=== PATIENT | male | born 1955 | race Hispanic/Latino ===

== ENCOUNTER 2022-03-13 16:52 | Emergency (ER) | payer SELFPAY ==
[~2022-03-13] VITALS: Ht 162.6 cm; Wt 68.0 kg
[~2022-03-13 16:52] MED LIST: AMLODIPINE BESYL5 MG PO; AUGMENTIN 500-1 EACH PO; CEFDINIR300 MG PO; METOPROLOL SUCC25 MG PO; METOPROLOL TART25 MG PO; PLAVIX75 MG PO; SIMVASTATIN20 MG PO; TYLENOL # 31 EA PO
[2022-03-13] MEDS ORDERED: SODIUM CHLORIDE 0.9% 1000ML 1,000 ML IV ONE ×2 (17:30→20:15)
[2022-03-13 17:44] LABS: BASOPHILS % 0.3 % (0.0-1.0); EOSINOPHILS % 0.2 % (0.0-6.0); HEMATOCRIT 25.8 % (38.2-49.6); HEMOGLOBIN 8.1 g/dL (14.0-18.0); LYMPHOCYTES # (AUTO) 0.2 (1.0-3.2); MEAN CORPUSCULAR HEMOGLOBIN 29.3 pg (28-32); MEAN CORPUSCULAR HGB CONC 31.4 g/dL (31-35); MEAN CORPUSCULAR VOLUME 93.5 fL (81-99); MONOCYTES # (AUTO) 0.5 (0.2-0.8); MONOCYTES % 8.9 % (4.4-11.3); NEUTROPHILS # (AUTO) 5.1 (2.1-6.9); NEUTROPHILS % 85.8 % (38.7-80.0); PLATELET COUNT 135 x10e3/uL (140-360); RED BLOOD COUNT 2.76 x10e6/uL (4.3-5.7); RED CELL DISTRIBUTION WIDTH 15.4 % (11.7-14.4)
[2022-03-13 18:18] LABS: ALANINE AMINOTRANSFERASE 10 IU/L (0-55); ALBUMIN 2.3 g/dL (3.5-5.0); ALBUMIN/GLOBULIN RATIO 0.5 (0.8-2.0); ALKALINE PHOSPHATASE 54 IU/L (40-150); ANION GAP 29.4 mmol/L (8-16); CALCIUM 8.3 mg/dL (8.4-10.2); CHLORIDE 102 mmol/L (98-107); CREATINE KINASE 17 IU/L (30-200); CREATININE, SERUM 19.43 mg/dL (0.72-1.25); GLUCOSE 141 mg/dL (74-118); SODIUM 132 mmol/L (136-145)
[2022-03-13 18:26] LABS: POTASSIUM 6.4 mmol/L (3.5-5.1)
[2022-03-13 18:28] LABS: BLOOD UREA NITROGEN 127 mg/dL (7-26); CARBON DIOXIDE 7 mmol/L (22-29)
[2022-03-13] MEDS ORDERED: CALCIUM CHLORIDE 10% 1.36 MEQ/ML 10ML SYR IV STA (18:31)
[2022-03-13] MEDS ORDERED: DEXTROSE 50% SYRINGE 50 ML IV STA (18:31)
[2022-03-13] MEDS ORDERED: SODIUM BICARBONATE 8.4% INJ 50 ML SYR IV STA (18:31)
[2022-03-13] MEDS ORDERED: SOD POLYSTYRENE SULFONATE SUSP 15 GM/60 ML BTL PO ONE (18:45)
[2022-03-13] MEDS ORDERED: INSULIN REGULAR, HUMAN 100 UNIT/1 ML IV ONE (18:45)
[2022-03-13] MEDS ORDERED: CALCIUM CHLORIDE 13.6 MEQ in SODIUM CHLORIDE 0.9% 100 ML IV ONE (19:10)
[2022-03-13 19:52] LABS: AMPHETAMINES SCREEN,URINE NEGATIVE (NEGATIVE); BENZODIAZEPINES SCREEN,URINE NEGATIVE (NEGATIVE); PHENCYCLIDINE SCREEN,URINE NEGATIVE (NEGATIVE)
[2022-03-13] MEDS ORDERED: ONDANSETRON HCL INJ 2MG/ML 2ML 2 MG/ML VIAL IV STA (19:57)
[2022-03-13] MEDS ORDERED: FENTANYL CITRATE/PF 100MCG/2 ML INJ IV ONE (20:00)
[2022-03-13 20:04] LABS: CLARITY,URINE SL CLOUDY (CLEAR); COLOR,URINE YELLOW (YELLOW)
[2022-03-13 20:05] LABS: KETONES,URINE TRACE (NEGATIVE); LEUKOCYTE ESTERASE ,URINE NEGATIVE (NEGATIVE); NITRITE,URINE NEGATIVE (NEGATIVE); PROTEIN,URINE DIPSTICK >=300 (NEGATIVE); URINE UROBILINOGEN 0.2 mg/dL (0.2 - 1)
[2022-03-13 20:10] LABS: RBC,URINE >50 /HPF (0-5)
[2022-03-13 20:11] LABS: BACTERIA,URINE MANY /HPF
[2022-03-13 20:12] LABS: EPITHELIAL CELLS,URINE MANY /LPF
[2022-03-13 20:15] LABS: ABG PCO2 24 mmHg (35-45); ABG PH 7.27 (7.35-7.45); ABG PO2 123 mmHg (80-105)
[2022-03-13] MEDS ORDERED: FENTANYL CITRATE/PF 100MCG/2 ML INJ ONE (20:15)
[2022-03-13] MEDS ORDERED: ONDANSETRON HCL INJ 2MG/ML 2ML 2 MG/ML VIAL ONE (20:15)
[2022-03-13 20:16] LABS: ABG HCO3 11 mmol/L (22-26); ABG TCO2 12
[2022-03-13 22:32] LABS: ANION GAP 24.6 mmol/L (8-16); CALCIUM 8.8 mg/dL (8.4-10.2); CREATININE, SERUM 18.2 mg/dL (0.72-1.25); POTASSIUM 4.6 mmol/L (3.5-5.1)
== END 2022-03-14 01:30 | disposition other institution (70) ==
LOC: ER 17:06
DX: R41.82 Altered mental status, unspecified (principal); U07.1 COVID-19; N19 Unspecified kidney failure; E87.5 Hyperkalemia
CPT/HCPCS: 36415; 36600; 51702; 70450; 71045; 74176; 80048; 80053; 80307; 80320; 81001; 82140; 82550; 82553; 82805; 82948; 83605; 84484; 85025; 93005; 99284; J1817; J2405; J3010; J7030; J7050; J7799; U0002; 51700

== ENCOUNTER 2022-04-30 17:57 | Inpatient (IN) | payer BC, MEDICARE ==
[~2022-04-30] VITALS: Ht 162.6 cm; Wt 68.0 kg
[2022-04-30 18:44] LABS: BASOPHILS % 0.3 % (0.0-1.0); EOSINOPHILS # (AUTO) 0.3 (0.0-0.4); EOSINOPHILS % 3.6 % (0.0-6.0); LYMPHOCYTES # (AUTO) 0.6 (1.0-3.2); LYMPHOCYTES % 7.9 % (18.0-39.1); MEAN CORPUSCULAR HEMOGLOBIN 29.4 pg (28-32); MEAN CORPUSCULAR HGB CONC 30.2 g/dL (31-35); MEAN CORPUSCULAR VOLUME 97.5 fL (81-99); MONOCYTES # (AUTO) 0.6 (0.2-0.8); MONOCYTES % 8.4 % (4.4-11.3); NEUTROPHILS # (AUTO) 5.5 (2.1-6.9); NEUTROPHILS % 79.2 % (38.7-80.0); PLATELET COUNT 148 x10e3/uL (140-360); RED BLOOD COUNT 1.97 x10e6/uL (4.3-5.7); RED CELL DISTRIBUTION WIDTH 17.9 % (11.7-14.4)
[2022-04-30 18:53] LABS: HEMOGLOBIN 5.8 g/dL (14.0-18.0)
[2022-04-30 18:54] LABS: HEMATOCRIT 19.2 % (38.2-49.6)
[2022-04-30 19:05] LABS: ALBUMIN 2.5 g/dL (3.5-5.0); ALBUMIN/GLOBULIN RATIO 0.6 (0.8-2.0); ANION GAP 16.9 mmol/L (8-16); CALCIUM 9.2 mg/dL (8.4-10.2); CREATININE, SERUM 3.66 mg/dL (0.72-1.25)
[2022-04-30 19:07] LABS: POTASSIUM 2.9 mmol/L (3.5-5.1)
[2022-04-30] MEDS ORDERED: ONDANSETRON HCL INJ 2MG/ML 2ML 2 MG/ML VIAL IV PRN (19:15)
[2022-04-30] MEDS ORDERED: SODIUM CHLORIDE FLUSH 10 ML SYR INJ PRN (19:15)
[2022-04-30] MEDS ORDERED: SODIUM CHLORIDE 0.9% 250ML 250 ML IV ONE ×2 (19:15)
[2022-05-01] VITALS (9 sets, daily range): BP systolic 88–118; BP diastolic 46–92
[2022-05-01 06:08] LABS: BASOPHILS % 0.2 % (0.0-1.0); EOSINOPHILS # (AUTO) 0.2 (0.0-0.4); EOSINOPHILS % 4.2 % (0.0-6.0); HEMATOCRIT 22.8 % (38.2-49.6); HEMOGLOBIN 7.3 g/dL (14.0-18.0); LYMPHOCYTES # (AUTO) 0.5 (1.0-3.2); LYMPHOCYTES % 8.3 % (18.0-39.1); MEAN CORPUSCULAR HEMOGLOBIN 28.6 pg (28-32); MEAN CORPUSCULAR VOLUME 89.4 fL (81-99); MONOCYTES # (AUTO) 0.5 (0.2-0.8); MONOCYTES % 8.9 % (4.4-11.3); NEUTROPHILS # (AUTO) 4.3 (2.1-6.9); NEUTROPHILS % 77.5 % (38.7-80.0); PLATELET COUNT 130 x10e3/uL (140-360); RED BLOOD COUNT 2.55 x10e6/uL (4.3-5.7); RED CELL DISTRIBUTION WIDTH 18.2 % (11.7-14.4)
[2022-05-01 06:41] LABS: ALBUMIN 2.4 g/dL (3.5-5.0); ALBUMIN/GLOBULIN RATIO 0.6 (0.8-2.0); ANION GAP 16.6 mmol/L (8-16); CALCIUM 9.4 mg/dL (8.4-10.2); CREATININE, SERUM 4.3 mg/dL (0.72-1.25)
[2022-05-01 06:49] LABS: POTASSIUM 2.6 mmol/L (3.5-5.1)
[2022-05-01 09:46] LABS: FERRITIN 861.61 ng/mL (21.81-274.66)
[2022-05-01] MEDS: EPOETIN ALFA-EPBX 10,000 UNIT/ML VIAL SC SCH (09:53)
[2022-05-01] MEDS ORDERED: ACETAMINOPHEN 325 MG TAB PO PRN (11:00)
[2022-05-01] MEDS ORDERED: POTASSIUM CHLORIDE 10MEQ/100ML 400 ML IV ONE (11:00)
[2022-05-01] MEDS ORDERED: SODIUM FERRIC GLUCONATE COMPLX 125 MG in SODIUM CHLORIDE 0.9% 100 ML IV SCH (12:00)
[2022-05-01] MEDS ORDERED: SODIUM CHLORIDE 0.9% 100 ML ONE (12:16)
[2022-05-01] MEDS: IRON SUCROSE 100 MG in SODIUM CHLORIDE 0.9% 100 ML IV SCH (12:26)
[2022-05-01] MEDS ORDERED: SODIUM CHLORIDE 0.9% 1000ML 1,000 ML ONE (15:00)
[2022-05-01] MEDS ORDERED: SODIUM CHLORIDE 0.9% 500ML 500 ML IV ONE ×2 (15:15→16:00)
[2022-05-01] MEDS ORDERED: SODIUM CHLORIDE 0.9% 1000ML 2,000 ML IV PRN (16:00)
[2022-05-01] MEDS ORDERED: ALBUMIN 25% 12.5GM 0.25 GM/ML BTL IV PRN (16:00)
[2022-05-01] MEDS ORDERED: HEPARIN SOD (PORCINE) 1000 UNIT/ML SDV IV PRN (16:00)
[2022-05-01] MEDS ORDERED: SODIUM CHLORIDE 0.9% 250ML 250 ML ONE (17:17)
[2022-05-01] MEDS ORDERED: HALOPERIDOL LACTATE 5 MG/ML VIAL IM ONE (22:00)
[2022-05-01] MEDS: SIMVASTATIN 20 MG TAB PO SCH (22:17)
[2022-05-02] VITALS (12 sets, daily range): BP systolic 108–169; BP diastolic 51–92
[2022-05-02 06:30] LABS: BASOPHILS % 0.3 % (0.0-1.0); EOSINOPHILS # (AUTO) 0.2 (0.0-0.4); EOSINOPHILS % 2.6 % (0.0-6.0); HEMATOCRIT 31.7 % (38.2-49.6); LYMPHOCYTES # (AUTO) 0.6 (1.0-3.2); LYMPHOCYTES % 8.7 % (18.0-39.1); MEAN CORPUSCULAR HEMOGLOBIN 28.6 pg (28-32); MEAN CORPUSCULAR HGB CONC 31.5 g/dL (31-35); MEAN CORPUSCULAR VOLUME 90.6 fL (81-99); MONOCYTES # (AUTO) 0.6 (0.2-0.8); MONOCYTES % 8.4 % (4.4-11.3); NEUTROPHILS # (AUTO) 5.2 (2.1-6.9); NEUTROPHILS % 79.4 % (38.7-80.0); PLATELET COUNT 145 x10e3/uL (140-360); RED CELL DISTRIBUTION WIDTH 16.9 % (11.7-14.4)
[2022-05-02 07:05] LABS: ANION GAP 15.9 mmol/L (8-16); CALCIUM 9.5 mg/dL (8.4-10.2); CREATININE, SERUM 2.55 mg/dL (0.72-1.25); MAGNESIUM 2.1 MG/DL (1.3-2.1); PHOSPHORUS 1.2 MG/DL (2.3-4.7)
[2022-05-02 07:16] LABS: POTASSIUM 2.9 mmol/L (3.5-5.1)
[2022-05-02] MEDS: FOLIC ACID 1 MG TAB PO SCH (08:24)
[2022-05-02] MEDS: THIAMINE HCL 100 MG TAB PO SCH (08:24)
[2022-05-02] MEDS: IRON SUCROSE 100 MG in SODIUM CHLORIDE 0.9% 100 ML IV SCH (10:00)
[2022-05-02] MEDS ORDERED: POTASSIUM PHOSPHATE 30 MM in SODIUM CHLORIDE 0.9% 250ML 250 ML IV ONE (15:30)
[2022-05-02] MEDS: POTASSIUM CHLORIDE 20 MEQ TAB CR PO SCH (16:49)
[2022-05-02] MEDS: QUETIAPINE FUMARATE 25 MG TAB PO SCH (17:25)
[2022-05-02] MEDS ORDERED: QUETIAPINE FUMARATE 25 MG TAB GT ONE (21:45)
[2022-05-02] MEDS: SIMVASTATIN 20 MG TAB PO SCH (22:42)
[2022-05-03] VITALS (16 sets, daily range): BP systolic 128–193; BP diastolic 56–84
[2022-05-03] MEDS: METOPROLOL TARTRATE INJ 1 MG/ML VIAL IV PRN (03:33)
[2022-05-03] MEDS: QUETIAPINE FUMARATE 25 MG TAB PO SCH ×2 (08:13→17:08)
[2022-05-03] MEDS: POTASSIUM CHLORIDE 20 MEQ TAB CR PO SCH (08:13)
[2022-05-03] MEDS: THIAMINE HCL 100 MG TAB PO SCH (08:13)
[2022-05-03] MEDS: FOLIC ACID 1 MG TAB PO SCH (08:14)
[2022-05-03] MEDS: IRON SUCROSE 100 MG in SODIUM CHLORIDE 0.9% 100 ML IV SCH (08:48)
[2022-05-03] MEDS ORDERED: MAGNESIUM HYDROXIDE 30 ML UDC PO ONE (21:15)
[2022-05-03] MEDS: SIMVASTATIN 20 MG TAB PO SCH (21:54)
[2022-05-03 23:06] LABS: BASOPHILS % 0.5 % (0.0-1.0); EOSINOPHILS # (AUTO) 0.2 (0.0-0.4); EOSINOPHILS % 3.2 % (0.0-6.0); HEMATOCRIT 34.2 % (38.2-49.6); HEMOGLOBIN 10.5 g/dL (14.0-18.0); LYMPHOCYTES # (AUTO) 0.6 (1.0-3.2); LYMPHOCYTES % 11.1 % (18.0-39.1); MEAN CORPUSCULAR HEMOGLOBIN 28.5 pg (28-32); MEAN CORPUSCULAR HGB CONC 30.7 g/dL (31-35); MEAN CORPUSCULAR VOLUME 92.7 fL (81-99); MONOCYTES # (AUTO) 0.4 (0.2-0.8); MONOCYTES % 7.6 % (4.4-11.3); NEUTROPHILS # (AUTO) 4.3 (2.1-6.9); NEUTROPHILS % 75.8 % (38.7-80.0); PLATELET COUNT 102 x10e3/uL (140-360); RED BLOOD COUNT 3.69 x10e6/uL (4.3-5.7)
[2022-05-03 23:18] LABS: ANION GAP 17.7 mmol/L (8-16); CALCIUM 10.3 mg/dL (8.4-10.2); CREATININE, SERUM 3.48 mg/dL (0.72-1.25)
[2022-05-03 23:25] LABS: POTASSIUM 3.7 mmol/L (3.5-5.1)
[2022-05-04] VITALS (8 sets, daily range): BP systolic 108–161; BP diastolic 57–84
[2022-05-04] MEDS: METOPROLOL TARTRATE INJ 1 MG/ML VIAL IV PRN (01:41)
[2022-05-04 06:09] LABS: BASOPHILS % 0.6 % (0.0-1.0); EOSINOPHILS # (AUTO) 0.2 (0.0-0.4); EOSINOPHILS % 3.5 % (0.0-6.0); HEMATOCRIT 32.1 % (38.2-49.6); HEMOGLOBIN 10.6 g/dL (14.0-18.0); LYMPHOCYTES # (AUTO) 0.6 (1.0-3.2); MEAN CORPUSCULAR HEMOGLOBIN 28.6 pg (28-32); MEAN CORPUSCULAR VOLUME 86.8 fL (81-99); MONOCYTES # (AUTO) 0.5 (0.2-0.8); NEUTROPHILS # (AUTO) 4.8 (2.1-6.9); NEUTROPHILS % 77.5 % (38.7-80.0); PLATELET COUNT 145 x10e3/uL (140-360); RED CELL DISTRIBUTION WIDTH 16.8 % (11.7-14.4)
[2022-05-04 06:37] LABS: ALBUMIN 2.5 g/dL (3.5-5.0); ALBUMIN/GLOBULIN RATIO 0.5 (0.8-2.0); ANION GAP 18.9 mmol/L (8-16); CALCIUM 10.3 mg/dL (8.4-10.2); CREATININE, SERUM 3.31 mg/dL (0.72-1.25); MAGNESIUM 2.2 MG/DL (1.3-2.1); POTASSIUM 3.9 mmol/L (3.5-5.1)
[2022-05-04] MEDS: CARVEDILOL 12.5 MG TAB PO SCH ×2 (09:00→16:56)
[2022-05-04] MEDS ORDERED: POTASSIUM PHOSPHATE 15 MM in SODIUM CHLORIDE 0.9% 250ML 250 ML IV ONE (10:00)
[2022-05-04] MEDS ORDERED: ONDANSETRON HCL 4 MG ORAL DISINTEGRATING TAB PO PRN (10:15)
[2022-05-04] MEDS: FOLIC ACID 1 MG TAB PO SCH (12:42)
[2022-05-04] MEDS: QUETIAPINE FUMARATE 25 MG TAB PO SCH ×2 (12:43→16:56)
[2022-05-04] MEDS: POTASSIUM CHLORIDE 20 MEQ TAB CR PO SCH (12:43)
[2022-05-04] MEDS: THIAMINE HCL 100 MG TAB PO SCH (12:43)
[2022-05-04] MEDS: IRON SUCROSE 100 MG in SODIUM CHLORIDE 0.9% 100 ML IV SCH (12:43)
[2022-05-04] MEDS: EPOETIN ALFA-EPBX 10,000 UNIT/ML VIAL SC SCH (12:43)
[2022-05-04] MEDS: SIMVASTATIN 20 MG TAB PO SCH (21:00)
[2022-05-05 07:00] LABS: ANION GAP 16.1 mmol/L (8-16); CALCIUM 9.7 mg/dL (8.4-10.2); CREATININE, SERUM 2.04 mg/dL (0.72-1.25); PHOSPHORUS 3.4 MG/DL (2.3-4.7); POTASSIUM 4.1 mmol/L (3.5-5.1)
[2022-05-05 07:17] VITALS: BP 158/82
[2022-05-05 08:00] VITALS: BP 140/78
[2022-05-05 08:23] VITALS: BP 148/83
[2022-05-05] MEDS: IRON SUCROSE 100 MG in SODIUM CHLORIDE 0.9% 100 ML IV SCH (08:43)
[2022-05-05] MEDS: CARVEDILOL 12.5 MG TAB PO SCH ×2 (08:52→16:49)
[2022-05-05] MEDS: FOLIC ACID 1 MG TAB PO SCH (08:52)
[2022-05-05] MEDS: THIAMINE HCL 100 MG TAB PO SCH (08:53)
[2022-05-05] MEDS: POTASSIUM CHLORIDE 20 MEQ TAB CR PO SCH (08:53)
[2022-05-05] MEDS: QUETIAPINE FUMARATE 25 MG TAB PO SCH ×2 (08:53→16:49)
[2022-05-05 11:23] VITALS: BP 146/65
[2022-05-05] MEDS ORDERED: PROPOFOL IV EMULSION 10 MG/ML 20 ML VIAL ONE (16:58)
[2022-05-05] MEDS ORDERED: LIDOCAINE HCL 2% LOCAL INJ 5 ML SDV VIAL INJ ONE (16:58)
[2022-05-05] MEDS ORDERED: CYANOCOBALAMIN INJ 1,000 MCG/ML VIAL IM ONE (17:00)
[2022-05-05 20:00] VITALS: BP 146/65
[2022-05-05] MEDS: SIMVASTATIN 20 MG TAB PO SCH (20:32)
[2022-05-06] VITALS (8 sets, daily range): BP systolic 122–144; BP diastolic 60–84
[2022-05-06] MEDS ORDERED: PEG (High)/E-LYTE SOLN 4,000 ML BTL GT ONE (00:45)
[2022-05-06 06:38] LABS: ANION GAP 17.8 mmol/L (8-16); CALCIUM 9.4 mg/dL (8.4-10.2); CREATININE, SERUM 2.34 mg/dL (0.72-1.25); POTASSIUM 3.8 mmol/L (3.5-5.1)
[2022-05-06] MEDS: FOLIC ACID 1 MG TAB PO SCH (09:12)
[2022-05-06] MEDS: CYANOCOBALAMIN INJ 1,000 MCG/ML VIAL IM SCH (09:12)
[2022-05-06] MEDS: THIAMINE HCL 100 MG TAB PO SCH (09:12)
[2022-05-06] MEDS: CARVEDILOL 12.5 MG TAB PO SCH ×2 (09:13→16:27)
[2022-05-06] MEDS: QUETIAPINE FUMARATE 25 MG TAB PO SCH ×2 (09:14→16:19)
[2022-05-06] MEDS: IRON SUCROSE 100 MG in SODIUM CHLORIDE 0.9% 100 ML IV SCH (09:14)
[2022-05-06] MEDS: EPOETIN ALFA-EPBX 10,000 UNIT/ML VIAL SC SCH (09:40)
[2022-05-06] MEDS ORDERED: SODIUM CHLORIDE 0.9% 250ML 250 ML ONE (14:49)
[2022-05-06] MEDS: SODIUM CHLORIDE 0.9% 1000ML 1,000 ML IV SCH (16:19)
[2022-05-06] MEDS ORDERED: OLANZAPINE 5 MG TAB PO SCH (20:45)
[2022-05-06] MEDS: SIMVASTATIN 20 MG TAB PO SCH (21:29)
[2022-05-07] VITALS (8 sets, daily range): BP systolic 114–188; BP diastolic 60–89
[2022-05-07] MEDS: SODIUM CHLORIDE 0.9% 1000ML 1,000 ML IV SCH (05:12)
[2022-05-07 05:45] LABS: BASOPHILS % 0.3 % (0.0-1.0); EOSINOPHILS # (AUTO) 0.1 (0.0-0.4); EOSINOPHILS % 2.4 % (0.0-6.0); HEMATOCRIT 30.4 % (38.2-49.6); HEMOGLOBIN 9.1 g/dL (14.0-18.0); LYMPHOCYTES # (AUTO) 0.7 (1.0-3.2); LYMPHOCYTES % 11.8 % (18.0-39.1); MEAN CORPUSCULAR HEMOGLOBIN 28.5 pg (28-32); MEAN CORPUSCULAR HGB CONC 29.9 g/dL (31-35); MEAN CORPUSCULAR VOLUME 95.3 fL (81-99); MONOCYTES # (AUTO) 0.6 (0.2-0.8); MONOCYTES % 9.4 % (4.4-11.3); NEUTROPHILS # (AUTO) 4.3 (2.1-6.9); NEUTROPHILS % 74.4 % (38.7-80.0); PLATELET COUNT 176 x10e3/uL (140-360); RED BLOOD COUNT 3.19 x10e6/uL (4.3-5.7); RED CELL DISTRIBUTION WIDTH 16.5 % (11.7-14.4)
[2022-05-07 06:12] LABS: ANION GAP 17.5 mmol/L (8-16); CALCIUM 8.6 mg/dL (8.4-10.2); CREATININE, SERUM 2.14 mg/dL (0.72-1.25); MAGNESIUM 1.6 MG/DL (1.3-2.1); PHOSPHORUS 3.6 MG/DL (2.3-4.7); POTASSIUM 3.5 mmol/L (3.5-5.1)
[2022-05-07] MEDS: THIAMINE HCL 100 MG TAB PO SCH (09:14)
[2022-05-07] MEDS: CYANOCOBALAMIN INJ 1,000 MCG/ML VIAL IM SCH (09:14)
[2022-05-07] MEDS: QUETIAPINE FUMARATE 25 MG TAB PO SCH ×2 (09:14→17:11)
[2022-05-07] MEDS: FOLIC ACID 1 MG TAB PO SCH (09:14)
[2022-05-07] MEDS: CARVEDILOL 12.5 MG TAB PO SCH ×2 (09:15→17:12)
[2022-05-07] MEDS: IRON SUCROSE 100 MG in SODIUM CHLORIDE 0.9% 100 ML IV SCH (09:17)
[2022-05-07] MEDS ORDERED: POTASSIUM CHLORIDE 20 MEQ TAB CR PO ONE (09:30)
[2022-05-07] MEDS: SODIUM CHLORIDE 0.45% 1,000 ML IV SCH ×2 (13:41→23:44)
[2022-05-07] MEDS ORDERED: LIDOCAINE HCL 2% LOCAL INJ 5 ML SDV VIAL INJ ONE (17:27)
[2022-05-07] MEDS ORDERED: HYOSCYAMINE SULFATE 0.5 MG/ML INJ ONE (17:27)
[2022-05-07] MEDS ORDERED: PROPOFOL IV EMULSION 10 MG/ML 20 ML VIAL ONE (17:27)
[2022-05-07] MEDS ORDERED: OLANZAPINE 5 MG TAB PO PRN (22:00)
[2022-05-07] MEDS: DIAZEPAM 5 MG TAB PO SCH (22:18)
[2022-05-07] MEDS: SIMVASTATIN 20 MG TAB PO SCH (22:18)
[2022-05-08 01:08] VITALS: BP 130/68
[2022-05-08 04:19] VITALS: BP 138/80
[2022-05-08 05:16] LABS: BASOPHILS % 0.6 % (0.0-1.0); EOSINOPHILS # (AUTO) 0.2 (0.0-0.4); EOSINOPHILS % 3.5 % (0.0-6.0); HEMATOCRIT 32.2 % (38.2-49.6); HEMOGLOBIN 9.6 g/dL (14.0-18.0); LYMPHOCYTES # (AUTO) 0.9 (1.0-3.2); LYMPHOCYTES % 13.3 % (18.0-39.1); MEAN CORPUSCULAR HEMOGLOBIN 28.5 pg (28-32); MEAN CORPUSCULAR HGB CONC 29.8 g/dL (31-35); MEAN CORPUSCULAR VOLUME 95.5 fL (81-99); MONOCYTES # (AUTO) 0.5 (0.2-0.8); MONOCYTES % 7.8 % (4.4-11.3); NEUTROPHILS # (AUTO) 4.7 (2.1-6.9); NEUTROPHILS % 71.4 % (38.7-80.0); PLATELET COUNT 190 x10e3/uL (140-360); RED BLOOD COUNT 3.37 x10e6/uL (4.3-5.7)
[2022-05-08 05:35] LABS: ANION GAP 15.7 mmol/L (8-16); CALCIUM 8.5 mg/dL (8.4-10.2); CREATININE, SERUM 1.59 mg/dL (0.72-1.25); POTASSIUM 3.7 mmol/L (3.5-5.1)
[2022-05-08] MEDS: DIAZEPAM 5 MG TAB PO SCH ×2 (06:23→14:00)
[2022-05-08] MEDS: FOLIC ACID 1 MG TAB PO SCH (08:13)
[2022-05-08] MEDS: THIAMINE HCL 100 MG TAB PO SCH (08:14)
[2022-05-08] MEDS: SODIUM CHLORIDE 0.45% 1,000 ML IV SCH (09:40)
[2022-05-08] MEDS: IRON SUCROSE 100 MG in SODIUM CHLORIDE 0.9% 100 ML IV SCH (09:40)
[2022-05-08] MEDS: CARVEDILOL 12.5 MG TAB PO SCH (09:42)
[2022-05-08] MEDS: CYANOCOBALAMIN INJ 1,000 MCG/ML VIAL IM SCH (09:42)
[2022-05-08] MEDS: QUETIAPINE FUMARATE 25 MG TAB PO SCH (09:46)
[2022-05-08 09:47] VITALS: BP 138/80
[2022-05-08] MEDS ORDERED: LIDOCAINE HCL 1% LOCAL INJ 20 ML VIAL ONE (10:41)
[2022-05-08 12:51] VITALS: BP 131/79
== END 2022-05-08 16:32 | DRG 377 ==
LOC: ER 18:03 → ERHOLD 19:10 → MED/SURG3 23:04 → OBSVTOIN 05-02 10:54
PROVIDERS: ADMIT Internal Medicine; ATTEND Internal Medicine
PROC: 5A1D70Z Performance of Urinary Filtration, Intermittent, Less than 6 Hours Per Day (ICD-10-PCS; 2022-05-01)
PROC: 0DB78ZX Excision of Stomach, Pylorus, Via Natural or Artificial Opening Endoscopic, Diagnostic (ICD-10-PCS; 2022-05-05)
PROC: 0DB68ZX Excision of Stomach, Via Natural or Artificial Opening Endoscopic, Diagnostic (ICD-10-PCS; 2022-05-05)
PROC: 0DH68UZ Insertion of Feeding Device into Stomach, Via Natural or Artificial Opening Endoscopic (ICD-10-PCS; 2022-05-05)
PROC: 0DB58ZX Excision of Esophagus, Via Natural or Artificial Opening Endoscopic, Diagnostic (ICD-10-PCS; 2022-05-05 15:31)
PROC: 0DJD8ZZ Inspection of Lower Intestinal Tract, Via Natural or Artificial Opening Endoscopic (ICD-10-PCS; principal; 2022-05-06 15:16)
PROC: 0JH63XZ Insertion of Tunneled Vascular Access Device into Chest Subcutaneous Tissue and Fascia, Percutaneous Approach (ICD-10-PCS; 2022-05-08)
PROC: 02HV33Z Insertion of Infusion Device into Superior Vena Cava, Percutaneous Approach (ICD-10-PCS; 2022-05-08)
DX: K25.4 Chronic or unspecified gastric ulcer with hemorrhage (principal); N17.0 Acute kidney failure with tubular necrosis; N18.6 End stage renal disease; U07.1 COVID-19; I12.0 Hypertensive chronic kidney disease with stage 5 chronic kidney disease or end stage renal disease; N17.9 Acute kidney failure, unspecified; D50.9 Iron deficiency anemia, unspecified; K29.71 Gastritis, unspecified, with bleeding; D69.6 Thrombocytopenia, unspecified; F10.20 Alcohol dependence, uncomplicated; Z99.2 Dependence on renal dialysis; R13.10 Dysphagia, unspecified; E78.5 Hyperlipidemia, unspecified; D63.1 Anemia in chronic kidney disease; E87.6 Hypokalemia; K94.29 Other complications of gastrostomy; E83.39 Other disorders of phosphorus metabolism; K64.8 Other hemorrhoids; K44.9 Diaphragmatic hernia without obstruction or gangrene; Z20.822 Contact with and (suspected) exposure to COVID-19
CPT/HCPCS: 36415; 36589; 43239; 43246; 45378; 71045; 74470; 80048; 80053; 82270; 82607; 82728; 82948; 83540; 83735; 84100; 84466; 85025; 86704; 86706; 86850; 86900; 86920; 87340; 88305; 88312; 88342; 93005; 94799; 96361; 99251; 99284; G0378; J1630; J1644; J1756; J1980; J2001; J2916; J3411; J3420; J3480; J7030; J7040; J7050; P9016

== ENCOUNTER 2022-05-20 20:13 | Inpatient (IN) | payer BC, MEDICARE ==
[~2022-05-20] VITALS: Ht 162.6 cm; Wt 42.3 kg
[2022-05-20 21:02] LABS: BASOPHILS % 0.2 % (0.0-1.0); EOSINOPHILS # (AUTO) 0.1 (0.0-0.4); HEMATOCRIT 38.8 % (38.2-49.6); LYMPHOCYTES % 11.8 % (18.0-39.1); MEAN CORPUSCULAR HEMOGLOBIN 28.1 pg (28-32); MEAN CORPUSCULAR HGB CONC 28.4 g/dL (31-35); MEAN CORPUSCULAR VOLUME 99.2 fL (81-99); MONOCYTES # (AUTO) 0.5 (0.2-0.8); MONOCYTES % 6.1 % (4.4-11.3); NEUTROPHILS # (AUTO) 6.9 (2.1-6.9); PLATELET COUNT 204 x10e3/uL (140-360); RED BLOOD COUNT 3.91 x10e6/uL (4.3-5.7); RED CELL DISTRIBUTION WIDTH 17.3 % (11.7-14.4)
[2022-05-20 21:13] LABS: ALBUMIN/GLOBULIN RATIO 0.6 (0.8-2.0); ANION GAP 20.4 mmol/L (8-16); CALCIUM 10.1 mg/dL (8.4-10.2); CREATININE, SERUM 2.98 mg/dL (0.72-1.25); POTASSIUM 4.4 mmol/L (3.5-5.1)
[2022-05-20 21:19] LABS: CREATINE KINASE MB 1.2 ng/mL (0-5.0)
[2022-05-20 21:20] LABS: CLARITY,URINE CLOUDY (CLEAR); COLOR,URINE YELLOW (YELLOW); KETONES,URINE NEGATIVE (NEGATIVE); LEUKOCYTE ESTERASE ,URINE LARGE (NEGATIVE); NITRITE,URINE NEGATIVE (NEGATIVE); PROTEIN,URINE DIPSTICK 2+ (NEGATIVE); URINE UROBILINOGEN 0.2 mg/dL (0.2 - 1)
[2022-05-20 21:33] LABS: BACTERIA,URINE MANY /HPF; WBC,URINE (MAN) 21-50 /HPF (0-5)
[2022-05-20] MEDS ORDERED: DEXTROSE 5% 500ML 500 ML IV ONE (22:30)
[2022-05-21] VITALS (7 sets, daily range): BP systolic 101–140; BP diastolic 65–73
[2022-05-21] MEDS: DEXTROSE 5% 1,000 ML IV SCH ×4 (05:10→21:21)
[2022-05-21 05:59] LABS: BASOPHILS % 0.3 % (0.0-1.0); EOSINOPHILS # (AUTO) 0.1 (0.0-0.4); HEMATOCRIT 34.5 % (38.2-49.6); HEMOGLOBIN 10.5 g/dL (14.0-18.0); LYMPHOCYTES % 8.8 % (18.0-39.1); MEAN CORPUSCULAR HEMOGLOBIN 28.5 pg (28-32); MEAN CORPUSCULAR HGB CONC 30.4 g/dL (31-35); MEAN CORPUSCULAR VOLUME 93.8 fL (81-99); MONOCYTES # (AUTO) 0.7 (0.2-0.8); MONOCYTES % 6.4 % (4.4-11.3); NEUTROPHILS # (AUTO) 9.2 (2.1-6.9); NEUTROPHILS % 82.4 % (38.7-80.0); PLATELET COUNT 203 x10e3/uL (140-360); RED BLOOD COUNT 3.68 x10e6/uL (4.3-5.7); RED CELL DISTRIBUTION WIDTH 17.1 % (11.7-14.4)
[2022-05-21 06:25] LABS: ANION GAP 19.2 mmol/L (8-16); CREATININE, SERUM 2.93 mg/dL (0.72-1.25); POTASSIUM 4.2 mmol/L (3.5-5.1)
[2022-05-21] MEDS ORDERED: DOCUSATE SODIUM 100 MG CAP PO PRN (07:15)
[2022-05-21] MEDS ORDERED: ACETAMINOPHEN 325 MG TAB PO PRN (07:15)
[2022-05-21] MEDS ORDERED: ONDANSETRON HCL INJ 2MG/ML 2ML 2 MG/ML VIAL IV PRN (07:15)
[2022-05-21] MEDS: METOPROLOL TARTRATE 25 MG TAB PO SCH ×2 (09:00→17:28)
[2022-05-21] MEDS: AMLODIPINE BESYLATE 5 MG TAB PO SCH (09:00)
[2022-05-21] MEDS: CLOPIDOGREL BISULFATE 75 MG TAB PO SCH (09:34)
[2022-05-21 12:51] LABS: ANION GAP 16.1 mmol/L (8-16); CALCIUM 9.5 mg/dL (8.4-10.2); CREATININE, SERUM 2.76 mg/dL (0.72-1.25); POTASSIUM 4.1 mmol/L (3.5-5.1)
[2022-05-21 18:39] LABS: ANION GAP 16.8 mmol/L (8-16); CALCIUM 9.2 mg/dL (8.4-10.2); CREATININE, SERUM 2.47 mg/dL (0.72-1.25); POTASSIUM 3.8 mmol/L (3.5-5.1)
[2022-05-21] MEDS: SIMVASTATIN 20 MG TAB PO SCH (21:21)
[2022-05-22] VITALS (7 sets, daily range): BP systolic 101–163; BP diastolic 48–73
[2022-05-22] MEDS: DEXTROSE 5% 1,000 ML IV SCH (06:24)
[2022-05-22 06:30] LABS: ANION GAP 14.7 mmol/L (8-16); CALCIUM 8.9 mg/dL (8.4-10.2); CREATININE, SERUM 2.15 mg/dL (0.72-1.25); POTASSIUM 3.7 mmol/L (3.5-5.1)
[2022-05-22] MEDS: AMLODIPINE BESYLATE 5 MG TAB PO SCH (10:02)
[2022-05-22] MEDS: METOPROLOL TARTRATE 25 MG TAB PO SCH ×2 (10:02→17:00)
[2022-05-22] MEDS: CLOPIDOGREL BISULFATE 75 MG TAB PO SCH (10:03)
[2022-05-22] MEDS ORDERED: SODIUM CHLORIDE 0.45% 1,000 ML IV ONE (12:00)
[2022-05-22] MEDS: SIMVASTATIN 20 MG TAB PO SCH (21:49)
[2022-05-23 08:22] VITALS: BP 150/78
[2022-05-23 08:51] VITALS: BP 150/78
[2022-05-23] MEDS: CLOPIDOGREL BISULFATE 75 MG TAB PO SCH (09:53)
[2022-05-23] MEDS: METOPROLOL TARTRATE 25 MG TAB PO SCH ×2 (09:53→17:17)
[2022-05-23] MEDS: AMLODIPINE BESYLATE 5 MG TAB PO SCH (09:53)
[2022-05-23] MEDS ORDERED: SODIUM CHLORIDE 0.9% 250ML 250 ML ONE (10:09)
[2022-05-23 12:28] VITALS: BP 86/60
[2022-05-23 17:50] VITALS: BP 143/67
[2022-05-23 20:00] VITALS: BP 145/62
[2022-05-23] MEDS: SIMVASTATIN 20 MG TAB PO SCH (20:28)
[2022-05-23 23:16] VITALS: BP 145/62
[2022-05-24] VITALS (7 sets, daily range): BP systolic 141–163; BP diastolic 57–63
[2022-05-24 06:48] LABS: ANION GAP 17.4 mmol/L (8-16); CALCIUM 9.6 mg/dL (8.4-10.2); CREATININE, SERUM 1.28 mg/dL (0.72-1.25); POTASSIUM 3.4 mmol/L (3.5-5.1)
[2022-05-24] MEDS: CLOPIDOGREL BISULFATE 75 MG TAB PO SCH (09:27)
[2022-05-24] MEDS: AMLODIPINE BESYLATE 5 MG TAB PO SCH (09:27)
[2022-05-24] MEDS: METOPROLOL TARTRATE 25 MG TAB PO SCH ×2 (09:27→17:36)
[2022-05-24] MEDS ORDERED: SODIUM CHLORIDE 0.45% 1,000 ML IV ONE (11:30)
[2022-05-24] MEDS ORDERED: POTASSIUM CHLORIDE 10MEQ/100ML 200 ML IV ONE (11:30)
[2022-05-24] MEDS: SIMVASTATIN 20 MG TAB PO SCH (20:19)
[2022-05-25] VITALS (8 sets, daily range): BP systolic 117–161; BP diastolic 47–61
[2022-05-25 06:02] LABS: ANION GAP 16.7 mmol/L (8-16); CALCIUM 9.6 mg/dL (8.4-10.2); CREATININE, SERUM 0.96 mg/dL (0.72-1.25); MAGNESIUM 2.2 MG/DL (1.3-2.1); POTASSIUM 3.7 mmol/L (3.5-5.1)
[2022-05-25] MEDS: METOPROLOL TARTRATE 25 MG TAB PO SCH ×2 (09:17→16:47)
[2022-05-25] MEDS: CLOPIDOGREL BISULFATE 75 MG TAB PO SCH (09:17)
[2022-05-25] MEDS: AMLODIPINE BESYLATE 5 MG TAB PO SCH (09:18)
[2022-05-25] MEDS: SODIUM BICARBONATE 650 MG TAB PO SCH ×3 (09:22→20:19)
[2022-05-25] MEDS: SIMVASTATIN 20 MG TAB PO SCH (20:19)
[2022-05-26 01:08] VITALS: BP 137/52
[2022-05-26 05:47] VITALS: BP 148/58
[2022-05-26 06:37] LABS: ANION GAP 14.4 mmol/L (8-16); CALCIUM 8.9 mg/dL (8.4-10.2); CREATININE, SERUM 0.86 mg/dL (0.72-1.25); PHOSPHORUS 3.6 MG/DL (2.3-4.7); POTASSIUM 3.4 mmol/L (3.5-5.1)
[2022-05-26] MEDS ORDERED: POTASSIUM CHLORIDE 20 MEQ TAB CR PO ONE (08:45)
[2022-05-26 08:48] VITALS: BP 150/51
[2022-05-26 09:00] VITALS: BP 150/51
[2022-05-26] MEDS: POTASSIUM CHLORIDE 10MEQ/100ML 100 ML IV SCH ×3 (10:00→10:42)
[2022-05-26] MEDS: METOPROLOL TARTRATE 25 MG TAB PO SCH (10:32)
[2022-05-26] MEDS: AMLODIPINE BESYLATE 5 MG TAB PO SCH (10:32)
[2022-05-26] MEDS: CLOPIDOGREL BISULFATE 75 MG TAB PO SCH (10:32)
[2022-05-26 11:12] VITALS: BP 136/61
[2022-05-26] MEDS ORDERED: ONDANSETRON HCL 4 MG ORAL DISINTEGRATING TAB PO PRN (12:30)
== END 2022-05-26 14:50 | disposition home or self-care (01) | DRG 682 ==
LOC: ER 20:27 → ERHOLD 22:48 → MED/SURG3 23:40
PROVIDERS: ADMIT Internal Medicine; ATTEND Internal Medicine
DX: I12.9 Hypertensive chronic kidney disease with stage 1 through stage 4 chronic kidney disease, or unspecified chronic kidney disease (principal); E43 Unspecified severe protein-calorie malnutrition; G93.41 Metabolic encephalopathy; N17.9 Acute kidney failure, unspecified; E87.0 Hyperosmolality and hypernatremia; N39.0 Urinary tract infection, site not specified; R64 Cachexia; Z68.1 Body mass index [BMI] 19.9 or less, adult; E87.20 Acidosis, unspecified; E87.8 Other disorders of electrolyte and fluid balance, not elsewhere classified; R13.10 Dysphagia, unspecified; B96.4 Proteus (mirabilis) (morganii) as the cause of diseases classified elsewhere; B96.1 Klebsiella pneumoniae [K. pneumoniae] as the cause of diseases classified elsewhere; N18.30 Chronic kidney disease, stage 3 unspecified; D63.1 Anemia in chronic kidney disease; K21.9 Gastro-esophageal reflux disease without esophagitis; F10.20 Alcohol dependence, uncomplicated; Y90.0 Blood alcohol level of less than 20 mg/100 ml; E78.5 Hyperlipidemia, unspecified; E87.6 Hypokalemia; Z86.16 Personal history of COVID-19; Z93.1 Gastrostomy status
CPT/HCPCS: 36415; 70450; 71045; 80048; 80053; 80320; 81001; 82140; 82550; 82553; 82948; 83605; 83735; 84100; 84484; 85025; 87040; 87086; 87186; 93005; 94799; 99251; 99284; J0696; J3480; J7050; J7060; J7070

== ENCOUNTER 2022-06-09 13:02 | Emergency (ER) | payer BC, MEDICARE ==
[~2022-06-09] VITALS: Ht 162.6 cm; Wt 42.2 kg
[2022-06-09] MEDS ORDERED: SODIUM CHLORIDE 0.9% 1000ML 500 ML IV ONE (14:00)
[2022-06-09 14:10] LABS: BASOPHILS % 0.3 % (0.0-1.0); EOSINOPHILS # (AUTO) 0.1 (0.0-0.4); EOSINOPHILS % 1.6 % (0.0-6.0); HEMATOCRIT 28.7 % (38.2-49.6); HEMOGLOBIN 8.7 g/dL (14.0-18.0); LYMPHOCYTES # (AUTO) 1.1 (1.0-3.2); MEAN CORPUSCULAR HEMOGLOBIN 29.8 pg (28-32); MEAN CORPUSCULAR HGB CONC 30.3 g/dL (31-35); MEAN CORPUSCULAR VOLUME 98.3 fL (81-99); MONOCYTES # (AUTO) 0.7 (0.2-0.8); MONOCYTES % 9.2 % (4.4-11.3); NEUTROPHILS # (AUTO) 5.1 (2.1-6.9); NEUTROPHILS % 72.5 % (38.7-80.0); PLATELET COUNT 162 x10e3/uL (140-360); RED BLOOD COUNT 2.92 x10e6/uL (4.3-5.7); RED CELL DISTRIBUTION WIDTH 18.6 % (11.7-14.4)
[2022-06-09] MEDS ORDERED: Vancomycin IV 1 GM in SODIUM CHLORIDE 0.9% 250ML 250 ML IV SCH (14:15)
[2022-06-09 14:22] LABS: INR 1.4; PROTHROMBIN TIME 17.4 seconds (11.9-14.5)
[2022-06-09 14:23] LABS: PARTIAL THROMBOPLASTIN TIME 30.9 seconds (23.8-35.5)
[2022-06-09 14:32] LABS: ALBUMIN 2.8 g/dL (3.5-5.0); ALBUMIN/GLOBULIN RATIO 0.7 (0.8-2.0); CALCIUM 8.2 mg/dL (8.4-10.2); CREATININE, SERUM 0.97 mg/dL (0.72-1.25)
[2022-06-09 14:34] LABS: MAGNESIUM 1.6 MG/DL (1.3-2.1); PHOSPHORUS 2.9 MG/DL (2.3-4.7)
[2022-06-09 15:36] LABS: CLARITY,URINE SL CLOUDY (CLEAR); COLOR,URINE YELLOW (YELLOW); KETONES,URINE NEGATIVE (NEGATIVE); LEUKOCYTE ESTERASE ,URINE NEGATIVE (NEGATIVE); NITRITE,URINE NEGATIVE (NEGATIVE); PROTEIN,URINE DIPSTICK NEGATIVE (NEGATIVE)
[2022-06-09 15:37] LABS: URINE UROBILINOGEN 1 mg/dL (0.2 - 1)
[2022-06-09 15:44] LABS: AMORPHOUS SEDIMENT,URINE MODERATE (FEW); BACTERIA,URINE MODERATE /HPF; RBC,URINE 0-5 /HPF (0-5); WBC,URINE (MAN) 0-5 /HPF (0-5)
[2022-06-09 16:59] VITALS: BP 144/70
== END 2022-06-09 16:54 | disposition home or self-care (01) ==
LOC: ER 13:48
DX: E86.0 Dehydration (principal); I95.9 Hypotension, unspecified; E11.22 Type 2 diabetes mellitus with diabetic chronic kidney disease; I12.0 Hypertensive chronic kidney disease with stage 5 chronic kidney disease or end stage renal disease; N18.6 End stage renal disease; I73.9 Peripheral vascular disease, unspecified; E78.5 Hyperlipidemia, unspecified; Z79.02 Long term (current) use of antithrombotics/antiplatelets; Z79.899 Other long term (current) drug therapy; Z86.2 Personal history of diseases of the blood and blood-forming organs and certain disorders involving the immune mechanism; Z86.16 Personal history of COVID-19
CPT/HCPCS: 36415; 71045; 80053; 81001; 83605; 83735; 83880; 84100; 84484; 85025; 85610; 85730; 87040; 87086; 93005; 99284; J0692; J3370; J7030; J7050

== ENCOUNTER 2022-07-18 12:09 | Emergency (ER) | payer BC, MEDICARE ==
[~2022-07-18] VITALS: Ht 162.6 cm; Wt 42.2 kg
[2022-07-18 12:39] LABS: BASOPHILS % 0.5 % (0.0-1.0); EOSINOPHILS # (AUTO) 0.1 (0.0-0.4); EOSINOPHILS % 3.1 % (0.0-6.0); HEMATOCRIT 32.8 % (38.2-49.6); HEMOGLOBIN 9.8 g/dL (14.0-18.0); LYMPHOCYTES # (AUTO) 0.7 (1.0-3.2); LYMPHOCYTES % 17.7 % (18.0-39.1); MEAN CORPUSCULAR HEMOGLOBIN 30.8 pg (28-32); MEAN CORPUSCULAR HGB CONC 29.9 g/dL (31-35); MEAN CORPUSCULAR VOLUME 103.1 fL (81-99); MONOCYTES # (AUTO) 0.4 (0.2-0.8); MONOCYTES % 8.6 % (4.4-11.3); NEUTROPHILS # (AUTO) 2.9 (2.1-6.9); NEUTROPHILS % 68.4 % (38.7-80.0); PLATELET COUNT 131 x10e3/uL (140-360); RED BLOOD COUNT 3.18 x10e6/uL (4.3-5.7); RED CELL DISTRIBUTION WIDTH 16.4 % (11.7-14.4)
[2022-07-18 12:58] LABS: ALBUMIN 3.1 g/dL (3.5-5.0); ALBUMIN/GLOBULIN RATIO 0.7 (0.8-2.0); ANION GAP 16.4 mmol/L (8-16); CREATININE, SERUM 0.8 mg/dL (0.72-1.25); POTASSIUM 4.4 mmol/L (3.5-5.1)
[2022-07-18 14:44] LABS: CLARITY,URINE CLEAR (CLEAR); COLOR,URINE YELLOW (YELLOW); LEUKOCYTE ESTERASE ,URINE NEGATIVE (NEGATIVE); NITRITE,URINE NEGATIVE (NEGATIVE); PROTEIN,URINE DIPSTICK NEGATIVE (NEGATIVE)
[2022-07-18 14:45] LABS: KETONES,URINE NEGATIVE (NEGATIVE); URINE UROBILINOGEN 0.2 mg/dL (0.2 - 1)
[2022-07-18 14:58] LABS: RBC,URINE 0-5 /HPF (0-5)
== END 2022-07-18 15:28 | disposition home or self-care (01) ==
LOC: ER 12:14
DX: I95.89 Other hypotension (principal); I12.0 Hypertensive chronic kidney disease with stage 5 chronic kidney disease or end stage renal disease; N18.6 End stage renal disease; D64.9 Anemia, unspecified; E78.5 Hyperlipidemia, unspecified; K21.9 Gastro-esophageal reflux disease without esophagitis
CPT/HCPCS: 36415; 70450; 71045; 80053; 81001; 84484; 85025; 93005; 99284

== ENCOUNTER 2022-11-16 19:49 | Inpatient (IN) | payer MEDICARE ==
[~2022-11-16] VITALS: Ht 162.6 cm; Wt 42.2 kg
[2022-11-16] MEDS ORDERED: SODIUM CHLORIDE 0.9% 1000ML 1,000 ML IV STA (20:22)
[2022-11-16 20:42] LABS: BASOPHILS % 0.2 % (0.0-1.0); EOSINOPHILS # (AUTO) 0.1 (0.0-0.4); EOSINOPHILS % 1.5 % (0.0-6.0); HEMOGLOBIN 8.4 g/dL (14.0-18.0); LYMPHOCYTES % 11.1 % (18.0-39.1); MEAN CORPUSCULAR HEMOGLOBIN 29.3 pg (28-32); MEAN CORPUSCULAR HGB CONC 31.1 g/dL (31-35); MEAN CORPUSCULAR VOLUME 94.1 fL (81-99); MONOCYTES # (AUTO) 0.7 (0.2-0.8); MONOCYTES % 7.4 % (4.4-11.3); NEUTROPHILS # (AUTO) 6.9 (2.1-6.9); NEUTROPHILS % 78.7 % (38.7-80.0); PLATELET COUNT 159 x10e3/uL (140-360); RED BLOOD COUNT 2.87 x10e6/uL (4.3-5.7); RED CELL DISTRIBUTION WIDTH 13.8 % (11.7-14.4)
[2022-11-16 20:58] LABS: ALBUMIN 3.1 g/dL (3.5-5.0); ALBUMIN/GLOBULIN RATIO 0.5 (0.8-2.0); ANION GAP 14.7 mmol/L (8-16); CALCIUM 11.6 mg/dL (8.4-10.2); POTASSIUM 3.7 mmol/L (3.5-5.1)
[2022-11-16 21:05] LABS: CREATINE KINASE MB 1.4 ng/mL (0-5.0)
[2022-11-17] MEDS ORDERED: HYDRALAZINE HCL 20 MG/ML VIAL IV STA (03:52)
[2022-11-17] MEDS: SODIUM CHLORIDE 0.9% 1000ML 1,000 ML IV SCH ×3 (04:04→12:27)
[2022-11-17 04:24] LABS: BASOPHILS % 0.3 % (0.0-1.0); EOSINOPHILS # (AUTO) 0.1 (0.0-0.4); EOSINOPHILS % 1.7 % (0.0-6.0); HEMOGLOBIN 7.9 g/dL (14.0-18.0); LYMPHOCYTES # (AUTO) 0.8 (1.0-3.2); LYMPHOCYTES % 11.3 % (18.0-39.1); MEAN CORPUSCULAR HEMOGLOBIN 29.7 pg (28-32); MEAN CORPUSCULAR HGB CONC 31.6 g/dL (31-35); MONOCYTES # (AUTO) 0.5 (0.2-0.8); MONOCYTES % 7.6 % (4.4-11.3); NEUTROPHILS # (AUTO) 5.5 (2.1-6.9); NEUTROPHILS % 77.6 % (38.7-80.0); PLATELET COUNT 147 x10e3/uL (140-360); RED BLOOD COUNT 2.66 x10e6/uL (4.3-5.7); RED CELL DISTRIBUTION WIDTH 13.5 % (11.7-14.4)
[2022-11-17 04:41] LABS: ALBUMIN 2.6 g/dL (3.5-5.0); ALBUMIN/GLOBULIN RATIO 0.6 (0.8-2.0); ANION GAP 12.2 mmol/L (8-16); CALCIUM 10.2 mg/dL (8.4-10.2); CREATININE, SERUM 3.47 mg/dL (0.72-1.25); POTASSIUM 3.2 mmol/L (3.5-5.1)
[2022-11-17 04:48] LABS: CREATINE KINASE MB 1.1 ng/mL (0-5.0)
[2022-11-17] MEDS ORDERED: ACETAMINOPHEN 325 MG TAB PO PRN (11:00)
[2022-11-17] MEDS ORDERED: ACETAMINOPHEN/CODEINE 300MG - 30MG TAB PO PRN (11:00)
[2022-11-17] MEDS ORDERED: HYDRALAZINE HCL 20 MG/ML VIAL IV PRN (11:00)
[2022-11-17] MEDS ORDERED: ONDANSETRON HCL INJ 2MG/ML 2ML 2 MG/ML VIAL IV PRN (11:00)
[2022-11-17] MEDS ORDERED: POTASSIUM CHLORIDE 10MEQ/100ML 100 ML IV ONE (12:00)
[2022-11-17 13:45] VITALS: BP 141/63; PULSE 95; RESP 21; TEMP 97.6; O2SAT 100
[2022-11-17 14:13] VITALS: BP 141/63; PULSE 95; RESP 21; TEMP 97.6; O2SAT 100
[2022-11-17 14:19] VITALS: BP 141/63; PULSE 95; RESP 21; TEMP 97.6; O2SAT 100
[2022-11-17 14:26] LABS: CREATINE KINASE MB 1.2 ng/mL (0-5.0)
[2022-11-17] MEDS ORDERED: FAMOTIDINE20 MG PO (14:30)
[2022-11-17] MEDS ORDERED: ROSUVASTATIN CA40 MG PO (14:30)
[2022-11-17] MEDS ORDERED: FOLIC ACID PO (14:30)
[2022-11-17] MEDS ORDERED: MELOXICAM7.5 MG PO (14:30)
[2022-11-17] MEDS ORDERED: ASPIRIN81 MG PO (14:30)
[2022-11-17] MEDS ORDERED: SODIUM BICARBO650 MG PO (14:30)
[2022-11-17 16:40] VITALS: BP 150/58; PULSE 97; RESP 16; TEMP 97.7; O2SAT 99
[2022-11-17] MEDS ORDERED: METOPROLOL TARTRATE 25 MG TAB PO SCH (17:00)
[2022-11-17] MEDS: FAMOTIDINE 20 MG TAB PO SCH (18:24)
[2022-11-17 20:00] VITALS: BP_SYST 80; PULSE 103; RESP 18; TEMP 98.2; O2SAT 100
[2022-11-17 21:00] VITALS: BP 80/58; PULSE 103; RESP 18; TEMP 98.2; O2SAT 100
[2022-11-17] MEDS ORDERED: SIMVASTATIN 20 MG TAB PO SCH (21:00)
[2022-11-17] MEDS ORDERED: SIMVASTATIN 40 MG TAB PO SCH (21:00)
[2022-11-17] MEDS: SODIUM BICARBONATE 650 MG TAB PO SCH (22:00)
[2022-11-18] VITALS (7 sets, daily range): BP systolic 54–175; BP diastolic 63–74; PULSE 80–93; RESP 17–20; TEMP 98–99; O2SAT 98–100
[2022-11-18 04:54] LABS: BASOPHILS % 0.5 % (0.0-1.0); EOSINOPHILS # (AUTO) 0.1 (0.0-0.4); EOSINOPHILS % 1.8 % (0.0-6.0); HEMATOCRIT 23.4 % (38.2-49.6); HEMOGLOBIN 7.3 g/dL (14.0-18.0); LYMPHOCYTES # (AUTO) 0.8 (1.0-3.2); LYMPHOCYTES % 13.7 % (18.0-39.1); MEAN CORPUSCULAR HEMOGLOBIN 29.2 pg (28-32); MEAN CORPUSCULAR HGB CONC 31.2 g/dL (31-35); MEAN CORPUSCULAR VOLUME 93.6 fL (81-99); MONOCYTES # (AUTO) 0.4 (0.2-0.8); MONOCYTES % 5.9 % (4.4-11.3); NEUTROPHILS # (AUTO) 4.7 (2.1-6.9); PLATELET COUNT 134 x10e3/uL (140-360)
[2022-11-18 05:11] LABS: ALBUMIN 2.3 g/dL (3.5-5.0); ALBUMIN/GLOBULIN RATIO 0.5 (0.8-2.0); ANION GAP 12.7 mmol/L (8-16); CALCIUM 9.9 mg/dL (8.4-10.2); CREATININE, SERUM 3.5 mg/dL (0.72-1.25); POTASSIUM 3.7 mmol/L (3.5-5.1)
[2022-11-18] MEDS: SODIUM CHLORIDE 0.9% 1000ML 1,000 ML IV SCH (05:16)
[2022-11-18] MEDS: SODIUM BICARBONATE 650 MG TAB PO SCH ×3 (06:00→21:14)
[2022-11-18] MEDS: FAMOTIDINE 20 MG TAB PO SCH (07:30)
[2022-11-18] MEDS ORDERED: FOLIC ACID 1 MG TAB PO SCH (09:00)
[2022-11-18] MEDS ORDERED: CLOPIDOGREL BISULFATE 75 MG TAB PO SCH (09:00)
[2022-11-18] MEDS ORDERED: ASPIRIN 81 MG CHEW TAB PO SCH (09:00)
[2022-11-18] MEDS ORDERED: AMLODIPINE BESYLATE 5 MG TAB PO SCH (09:00)
[2022-11-18] MEDS ORDERED: NON-FORMULARY MEDICATION ([Folic Acid] 1 MG) PO SCH (09:00)
[2022-11-18] MEDS ORDERED: EPOETIN ALFA-EPBX 10,000 UNIT/ML VIAL SC SCH (10:00)
[2022-11-18] MEDS: EPOETIN ALFA-EPBX 10,000 UNIT/ML VIAL SC SCH (13:00)
[2022-11-18] MEDS: SODIUM BICARBONATE 8.4% 75 ML in DEXTROSE 5%/0.45% SOD CHL 1,000 ML IV SCH (13:07)
[2022-11-18 17:19] LABS: CLARITY,URINE SL CLOUDY (CLEAR); COLOR,URINE YELLOW (YELLOW); KETONES,URINE NEGATIVE (NEGATIVE); LEUKOCYTE ESTERASE ,URINE NEGATIVE (NEGATIVE); NITRITE,URINE NEGATIVE (NEGATIVE); PROTEIN,URINE DIPSTICK 2+ (NEGATIVE); URINE UROBILINOGEN 0.2 mg/dL (0.2 - 1)
[2022-11-18 17:28] LABS: CREATININE,URINE RANDOM 47.52 mg/dL (63-166)
[2022-11-18 17:34] LABS: AMORPHOUS SEDIMENT,URINE FEW (FEW); BACTERIA,URINE FEW /HPF; EPITHELIAL CELLS,URINE FEW /LPF; WBC,URINE (MAN) 0-5 /HPF (0-5)
[2022-11-19] VITALS (7 sets, daily range): BP systolic 135–187; BP diastolic 52–98; PULSE 68–117; RESP 15–18; TEMP 97.5–98.6; O2SAT 100
[2022-11-19] MEDS: SODIUM BICARBONATE 8.4% 75 ML in DEXTROSE 5%/0.45% SOD CHL 1,000 ML IV SCH (01:37)
[2022-11-19] MEDS: SODIUM BICARBONATE 650 MG TAB PO SCH ×3 (05:31→22:00)
[2022-11-19 05:51] LABS: BASOPHILS % 0.2 % (0.0-1.0); EOSINOPHILS # (AUTO) 0.1 (0.0-0.4); EOSINOPHILS % 1.7 % (0.0-6.0); HEMOGLOBIN 8.1 g/dL (14.0-18.0); LYMPHOCYTES # (AUTO) 0.7 (1.0-3.2); LYMPHOCYTES % 12.1 % (18.0-39.1); MEAN CORPUSCULAR HEMOGLOBIN 29.1 pg (28-32); MEAN CORPUSCULAR HGB CONC 31.2 g/dL (31-35); MEAN CORPUSCULAR VOLUME 93.5 fL (81-99); MONOCYTES # (AUTO) 0.3 (0.2-0.8); MONOCYTES % 6.3 % (4.4-11.3); NEUTROPHILS # (AUTO) 4.2 (2.1-6.9); PLATELET COUNT 130 x10e3/uL (140-360); RED BLOOD COUNT 2.78 x10e6/uL (4.3-5.7); RED CELL DISTRIBUTION WIDTH 13.6 % (11.7-14.4)
[2022-11-19 06:25] LABS: ALBUMIN 2.5 g/dL (3.5-5.0); ALBUMIN/GLOBULIN RATIO 0.5 (0.8-2.0); ANION GAP 12.1 mmol/L (8-16); CALCIUM 10.1 mg/dL (8.4-10.2); CREATININE, SERUM 3.28 mg/dL (0.72-1.25); MAGNESIUM 1.6 MG/DL (1.3-2.1); PHOSPHORUS 3.4 MG/DL (2.3-4.7); POTASSIUM 3.1 mmol/L (3.5-5.1)
[2022-11-19] MEDS: POTASSIUM CHLORIDE 10MEQ/100ML 100 ML IV SCH ×4 (11:27→17:06)
[2022-11-19] MEDS: D5.45%NS/KCL 20MEQ 1,000 ML IV SCH (11:33)
[2022-11-19] MEDS: Morphine 2mg Syringe 2 MG/ML SYR IV PRN ×2 (12:42→21:40)
[2022-11-19] MEDS: METOPROLOL TARTRATE INJ 1 MG/ML VIAL IV SCH ×2 (13:40→21:38)
[2022-11-19] MEDS: LORAZEPAM INJ 2 MG/ML VIAL IV PRN ×2 (16:28→22:12)
[2022-11-20] VITALS (10 sets, daily range): BP systolic 110–177; BP diastolic 56–84; PULSE 66–125; RESP 16–23; TEMP 97.3–100.8; O2SAT 94–100
[2022-11-20 00:01] LABS: % IRON SATURATION 21 % (15-50); IRON 33 ug/dL (65-175); TOTAL IRON BINDING CAPACITY 158 ug/dL (261-478); TRANSFERRIN 113 mg/dL (174-364)
[2022-11-20] MEDS: D5.45%NS/KCL 20MEQ 1,000 ML IV SCH ×2 (01:44→14:00)
[2022-11-20 04:55] LABS: BASOPHILS # (AUTO) 0.1 (0.0-0.1); BASOPHILS % 0.8 % (0.0-1.0); EOSINOPHILS # (AUTO) 0.2 (0.0-0.4); EOSINOPHILS % 2.8 % (0.0-6.0); HEMOGLOBIN 9.4 g/dL (14.0-18.0); LYMPHOCYTES # (AUTO) 0.9 (1.0-3.2); LYMPHOCYTES % 13.4 % (18.0-39.1); MEAN CORPUSCULAR HEMOGLOBIN 29.6 pg (28-32); MEAN CORPUSCULAR HGB CONC 31.3 g/dL (31-35); MEAN CORPUSCULAR VOLUME 94.3 fL (81-99); MONOCYTES # (AUTO) 0.4 (0.2-0.8); MONOCYTES % 6.7 % (4.4-11.3); NEUTROPHILS # (AUTO) 4.7 (2.1-6.9); NEUTROPHILS % 73.6 % (38.7-80.0); PLATELET COUNT 132 x10e3/uL (140-360); RED BLOOD COUNT 3.18 x10e6/uL (4.3-5.7); RED CELL DISTRIBUTION WIDTH 13.7 % (11.7-14.4)
[2022-11-20 05:04] LABS: INR 1.44; PROTHROMBIN TIME 18.1 seconds (11.9-14.5)
[2022-11-20 05:18] LABS: ALBUMIN 2.5 g/dL (3.5-5.0); ALBUMIN/GLOBULIN RATIO 0.5 (0.8-2.0); CALCIUM 9.9 mg/dL (8.4-10.2); CREATININE, SERUM 3.09 mg/dL (0.72-1.25)
[2022-11-20] MEDS: HYDRALAZINE HCL 20 MG/ML VIAL IV PRN (05:48)
[2022-11-20] MEDS: SODIUM BICARBONATE 650 MG TAB PO SCH ×3 (05:50→22:00)
[2022-11-20] MEDS: METOPROLOL TARTRATE INJ 1 MG/ML VIAL IV SCH ×3 (05:55→21:12)
[2022-11-20] MEDS: IRON SUCROSE 100 MG in SODIUM CHLORIDE 0.9% 100 ML IV SCH (09:17)
[2022-11-20] MEDS ORDERED: FENTANYL CITRATE/PF 100MCG/2 ML INJ ONE (11:38)
[2022-11-20] MEDS ORDERED: ETOMIDATE 2 MG/ML 10 ML INJ IV ONE (12:18)
[2022-11-20] MEDS ORDERED: POVIDONE IODINE 0.05% 0.05 % ML PO ONE (12:18)
[2022-11-20] MEDS ORDERED: PROPOFOL IV EMULSION 10 MG/ML 20 ML VIAL ONE (12:18)
[2022-11-20] MEDS ORDERED: CEFTRIAXONE 1 GM VIAL ONE ×2 (12:18→12:52)
[2022-11-20] MEDS ORDERED: DEXTROSE 5% 250ML 250 ML IV ONE (12:34)
[2022-11-20] MEDS: EPOETIN ALFA-EPBX 10,000 UNIT/ML VIAL SC SCH (14:00)
[2022-11-20] MEDS: LORAZEPAM INJ 2 MG/ML VIAL IV PRN (18:00)
[2022-11-21] VITALS (10 sets, daily range): BP systolic 151–191; BP diastolic 64–80; PULSE 79–119; RESP 18–21; TEMP 97–99.2; O2SAT 92–100
[2022-11-21] MEDS: SODIUM BICARBONATE 650 MG TAB PO SCH ×3 (06:00→21:16)
[2022-11-21] MEDS: METOPROLOL TARTRATE INJ 1 MG/ML VIAL IV SCH ×2 (06:01→14:07)
[2022-11-21 07:59] LABS: ANION GAP 15.2 mmol/L (8-16); CALCIUM 10.4 mg/dL (8.4-10.2); CREATININE, SERUM 3.2 mg/dL (0.72-1.25); MAGNESIUM 1.6 MG/DL (1.3-2.1); POTASSIUM 4.2 mmol/L (3.5-5.1)
[2022-11-21] MEDS: IRON SUCROSE 100 MG in SODIUM CHLORIDE 0.9% 100 ML IV SCH (08:32)
[2022-11-21] MEDS: D5.45%NS/KCL 20MEQ 1,000 ML IV SCH (08:33)
[2022-11-21] MEDS: LORAZEPAM INJ 2 MG/ML VIAL IV PRN ×3 (08:43→21:24)
[2022-11-21] MEDS: METOPROLOL TARTRATE 25 MG TAB PO SCH (17:34)
[2022-11-21] MEDS: HYDRALAZINE HCL 20 MG/ML VIAL IV PRN ×2 (17:57→23:46)
[2022-11-21] MEDS ORDERED: METOPROLOL TARTRATE INJ 1 MG/ML VIAL IV PRN (18:30)
[2022-11-22] VITALS (12 sets, daily range): BP systolic 103–181; BP diastolic 52–70; PULSE 77–95; RESP 16–20; TEMP 97–98.9; O2SAT 93–100
[2022-11-22] MEDS: D5.45%NS/KCL 20MEQ 1,000 ML IV SCH ×2 (06:09→21:50)
[2022-11-22] MEDS: SODIUM BICARBONATE 650 MG TAB PO SCH ×3 (06:09→21:49)
[2022-11-22 06:38] LABS: BASOPHILS % 0.3 % (0.0-1.0); EOSINOPHILS # (AUTO) 0.1 (0.0-0.4); EOSINOPHILS % 0.8 % (0.0-6.0); HEMATOCRIT 27.3 % (38.2-49.6); HEMOGLOBIN 8.5 g/dL (14.0-18.0); LYMPHOCYTES # (AUTO) 0.5 (1.0-3.2); LYMPHOCYTES % 5.7 % (18.0-39.1); MEAN CORPUSCULAR HEMOGLOBIN 29.1 pg (28-32); MEAN CORPUSCULAR HGB CONC 31.1 g/dL (31-35); MEAN CORPUSCULAR VOLUME 93.5 fL (81-99); MONOCYTES # (AUTO) 0.5 (0.2-0.8); MONOCYTES % 5.6 % (4.4-11.3); NEUTROPHILS # (AUTO) 7.7 (2.1-6.9); NEUTROPHILS % 85.5 % (38.7-80.0); PLATELET COUNT 122 x10e3/uL (140-360); RED BLOOD COUNT 2.92 x10e6/uL (4.3-5.7); RED CELL DISTRIBUTION WIDTH 14.1 % (11.7-14.4)
[2022-11-22 07:10] LABS: ALBUMIN 2.4 g/dL (3.5-5.0); ALBUMIN/GLOBULIN RATIO 0.5 (0.8-2.0); ANION GAP 15.5 mmol/L (8-16); CALCIUM 10.8 mg/dL (8.4-10.2); CREATININE, SERUM 2.62 mg/dL (0.72-1.25); POTASSIUM 3.5 mmol/L (3.5-5.1)
[2022-11-22 08:09] LABS: CHOL/HDL RATIO 1.8 (3.9-4.7)
[2022-11-22 08:28] LABS: THYROID STIMULATING HORMONE 0.883 uIU/mL (0.350-4.940)
[2022-11-22] MEDS ORDERED: IRON SUCROSE 100 MG in SODIUM CHLORIDE 0.9% 100 ML IV SCH (09:00)
[2022-11-22] MEDS: METOPROLOL TARTRATE 25 MG TAB PO SCH ×2 (09:20→16:32)
[2022-11-22] MEDS: CYANOCOBALAMIN INJ 1,000 MCG/ML VIAL IM SCH (09:20)
[2022-11-22] MEDS: LORAZEPAM INJ 2 MG/ML VIAL IV PRN (18:29)
[2022-11-23] VITALS (9 sets, daily range): BP systolic 99–209; BP diastolic 55–87; PULSE 72–98; RESP 14–18; TEMP 97.1–98.4; O2SAT 96–100
[2022-11-23] MEDS: LORAZEPAM INJ 2 MG/ML VIAL IV PRN (02:19)
[2022-11-23] MEDS: SODIUM BICARBONATE 650 MG TAB PO SCH ×3 (05:28→20:20)
[2022-11-23 06:28] LABS: ANION GAP 13.7 mmol/L (8-16); BASOPHILS % 0.5 % (0.0-1.0); CREATININE, SERUM 2.28 mg/dL (0.72-1.25); EOSINOPHILS # (AUTO) 0.2 (0.0-0.4); EOSINOPHILS % 2.2 % (0.0-6.0); HEMATOCRIT 27.5 % (38.2-49.6); HEMOGLOBIN 8.6 g/dL (14.0-18.0); LYMPHOCYTES # (AUTO) 0.8 (1.0-3.2); LYMPHOCYTES % 9.9 % (18.0-39.1); MEAN CORPUSCULAR HEMOGLOBIN 29.6 pg (28-32); MEAN CORPUSCULAR HGB CONC 31.3 g/dL (31-35); MEAN CORPUSCULAR VOLUME 94.5 fL (81-99); MONOCYTES # (AUTO) 0.5 (0.2-0.8); NEUTROPHILS # (AUTO) 6.4 (2.1-6.9); NEUTROPHILS % 78.7 % (38.7-80.0); PLATELET COUNT 161 x10e3/uL (140-360); POTASSIUM 3.7 mmol/L (3.5-5.1); RED BLOOD COUNT 2.91 x10e6/uL (4.3-5.7); RED CELL DISTRIBUTION WIDTH 14.3 % (11.7-14.4)
[2022-11-23] MEDS: CYANOCOBALAMIN INJ 1,000 MCG/ML VIAL IM SCH (09:59)
[2022-11-23] MEDS: METOPROLOL TARTRATE 25 MG TAB PO SCH ×2 (09:59→17:06)
[2022-11-23] MEDS: EPOETIN ALFA-EPBX 10,000 UNIT/ML VIAL SC SCH (12:59)
[2022-11-23] MEDS: Morphine 2mg Syringe 2 MG/ML SYR IV PRN (16:54)
[2022-11-23] MEDS ORDERED: IOPAMIDOL 370 MG/ML 100 ML INFUS..BTL INJ ONE (18:36)
[2022-11-23] MEDS: D5.45%NS/KCL 20MEQ 1,000 ML IV SCH (20:20)
[2022-11-23] MEDS: HYDRALAZINE HCL 20 MG/ML VIAL IV PRN (20:20)
[2022-11-24] VITALS (7 sets, daily range): BP systolic 145–188; BP diastolic 69–79; PULSE 79–97; RESP 16–18; TEMP 97.6–98.3; O2SAT 97–100
[2022-11-24] MEDS: LORAZEPAM INJ 2 MG/ML VIAL IV PRN (01:25)
[2022-11-24] MEDS: SODIUM BICARBONATE 650 MG TAB PO SCH ×3 (06:22→21:58)
[2022-11-24 06:45] LABS: ANION GAP 11.4 mmol/L (8-16); CALCIUM 10.4 mg/dL (8.4-10.2); CREATININE, SERUM 2.03 mg/dL (0.72-1.25); POTASSIUM 4.4 mmol/L (3.5-5.1)
[2022-11-24] MEDS: CYANOCOBALAMIN INJ 1,000 MCG/ML VIAL IM SCH (08:00)
[2022-11-24] MEDS: METOPROLOL TARTRATE 25 MG TAB PO SCH ×2 (08:00→16:48)
[2022-11-24] MEDS ORDERED: ONDANSETRON HCL 4 MG ORAL DISINTEGRATING TAB PO PRN (13:00)
[2022-11-24] MEDS: D5.45%NS/KCL 20MEQ 1,000 ML IV SCH (21:58)
[2022-11-25] VITALS (10 sets, daily range): BP systolic 125–204; BP diastolic 64–88; PULSE 61–89; RESP 16–22; TEMP 97.4–99.2; O2SAT 98–100
[2022-11-25] MEDS: SODIUM BICARBONATE 650 MG TAB PO SCH ×3 (06:26→21:56)
[2022-11-25] MEDS: CYANOCOBALAMIN INJ 1,000 MCG/ML VIAL IM SCH (09:38)
[2022-11-25] MEDS: METOPROLOL TARTRATE 25 MG TAB PO SCH ×2 (09:38→16:20)
[2022-11-25] MEDS: D5.45%NS/KCL 20MEQ 1,000 ML IV SCH (13:24)
[2022-11-26] MEDS: SODIUM BICARBONATE 650 MG TAB PO SCH ×2 (05:02→10:20)
[2022-11-26 06:14] LABS: ANION GAP 14.5 mmol/L (8-16); CALCIUM 10.4 mg/dL (8.4-10.2); CREATININE, SERUM 1.9 mg/dL (0.72-1.25); POTASSIUM 4.5 mmol/L (3.5-5.1)
[2022-11-26 09:30] VITALS: BP 153/68; PULSE 86; RESP 20; TEMP 98.6; O2SAT 99
[2022-11-26] MEDS: CYANOCOBALAMIN INJ 1,000 MCG/ML VIAL IM SCH (10:21)
[2022-11-26] MEDS: METOPROLOL TARTRATE 25 MG TAB PO SCH ×2 (10:21→16:26)
[2022-11-26] MEDS: D5.45%NS/KCL 20MEQ 1,000 ML IV SCH (10:22)
[2022-11-26 12:24] VITALS: BP 162/65; PULSE 81; RESP 16; TEMP 98; O2SAT 100
[2022-11-26 16:13] VITALS: BP 151/66; PULSE 80; RESP 16; TEMP 98.5; O2SAT 100
== END 2022-11-26 19:21 | DRG 682 ==
LOC: ER 20:17 → ERHOLD 22:41 → MED/SURG3 11-17 13:16
PROVIDERS: ADMIT Internal Medicine; ATTEND Internal Medicine
PROC: 0DH63UZ Insertion of Feeding Device into Stomach, Percutaneous Approach (ICD-10-PCS; principal; 2022-11-19)
PROC: 0D718ZZ Dilation of Upper Esophagus, Via Natural or Artificial Opening Endoscopic (ICD-10-PCS; 2022-11-19)
DX: N17.9 Acute kidney failure, unspecified (principal); G93.41 Metabolic encephalopathy; Z68.1 Body mass index [BMI] 19.9 or less, adult; E46 Unspecified protein-calorie malnutrition; R64 Cachexia; R62.7 Adult failure to thrive; K22.2 Esophageal obstruction; K44.9 Diaphragmatic hernia without obstruction or gangrene; K29.70 Gastritis, unspecified, without bleeding; M81.0 Age-related osteoporosis without current pathological fracture; F03.90 Unspecified dementia, unspecified severity, without behavioral disturbance, psychotic disturbance, mood disturbance, and anxiety; K21.9 Gastro-esophageal reflux disease without esophagitis; D50.9 Iron deficiency anemia, unspecified; I73.9 Peripheral vascular disease, unspecified; R00.0 Tachycardia, unspecified; E78.00 Pure hypercholesterolemia, unspecified; I12.9 Hypertensive chronic kidney disease with stage 1 through stage 4 chronic kidney disease, or unspecified chronic kidney disease; N18.4 Chronic kidney disease, stage 4 (severe); J44.9 Chronic obstructive pulmonary disease, unspecified; E83.52 Hypercalcemia; Z20.822 Contact with and (suspected) exposure to COVID-19; Z86.16 Personal history of COVID-19; Z79.02 Long term (current) use of antithrombotics/antiplatelets
CPT/HCPCS: 36415; 43246; 70450; 71045; 74176; 74230; 76770; 80048; 80053; 80061; 81001; 82140; 82550; 82553; 82570; 82607; 82746; 82948; 83540; 83690; 83735; 84100; 84300; 84443; 84466; 84484; 85025; 85045; 85610; 93005; 93306; 93880; 93925; 94799; 99252; 99285; J0696; J1756; J2060; J2270; J2405; J3420; J3480; J7030; J7050; J7070; Q9967

== ENCOUNTER 2022-12-16 06:15 | Emergency (ER) | payer MEDICARE ==
[~2022-12-16] VITALS: Ht 162.6 cm; Wt 42.2 kg
[~2022-12-16 06:15] MED LIST changes: +ASPIRIN81 MG PO; +FAMOTIDINE20 MG PO; +FOLIC ACID PO; +MELOXICAM7.5 MG PO; +ROSUVASTATIN CA40 MG PO; +SODIUM BICARBO650 MG PO
[2022-12-16 06:26] VITALS: O2SAT 100
== END 2022-12-16 06:41 ==
LOC: ER 06:24
DX: Z43.1 Encounter for attention to gastrostomy (principal); I10 Essential (primary) hypertension; D64.9 Anemia, unspecified; E78.5 Hyperlipidemia, unspecified; N28.9 Disorder of kidney and ureter, unspecified; K21.9 Gastro-esophageal reflux disease without esophagitis; M81.0 Age-related osteoporosis without current pathological fracture
CPT/HCPCS: 99283